=== PATIENT | male | born 1960 | race Caucasian/White ===

== ENCOUNTER 2018-12-21 13:14 | Emergency (ER) | payer OTHER ==
[2018-12-21] MEDS: IPRATROPIUM (NEB) 0.5 MG/2.5 ML AMP HHN (14:54)
[2018-12-21] MEDS: ALBUTEROL 0.083% (NEB) 2.5 MG/3 ML AMP HHN (14:54)
[2018-12-21] MEDS: DEXAMETHASONE 10 MG/ML 1 ML INJ IM (15:08)
== END 2018-12-21 15:45 | disposition home or self-care (01) ==
LOC: FTE 13:14
DX: R05 Cough (principal); J45.909 Unspecified asthma, uncomplicated; F17.210 Nicotine dependence, cigarettes, uncomplicated
CPT/HCPCS: 94664; 96372; 99284-25

== ENCOUNTER 2018-12-21 22:56 | Emergency (ER) | payer OTHER ==
[2018-12-22] MEDS: ALBUTEROL HFA 8 GM INHALER INH (04:28)
[2018-12-22] MEDS: AZITHROMYCIN 250 MG TAB PO ×5 (04:29→04:30)
== END 2018-12-22 05:30 | disposition home or self-care (01) ==
LOC: FTE 22:56
DX: Z76.0 Encounter for issue of repeat prescription (principal); J45.901 Unspecified asthma with (acute) exacerbation
CPT/HCPCS: 99283; 99283-25

== ENCOUNTER 2019-03-30 16:07 | Emergency (ER) | payer OTHER ==
[2019-03-30] MEDS ORDERED: ONDANSETRON 4 MG INJ IV (17:26)
[2019-03-30] MEDS ORDERED: SOD CHLORIDE 0.9% 1,000 ML IV (17:26)
[2019-03-30] MEDS ORDERED: morphine 4 MG/ML VIAL IV (17:26)
[2019-03-30] MEDS ORDERED: MECLIZINE 12.5 MG TAB PO (17:30)
[2019-03-30] MEDS ORDERED: DIPHTH/TET/ACEL PERTUSS (ADULT) 0.5 ML VIAL IM* (23:00)
[2019-03-30] MEDS ORDERED: ACETAMINOPHEN 500 MG TAB PO (23:00)
== END 2019-03-31 00:16 | disposition left against medical advice (07) ==
LOC: E/R 03-31 00:16
DX: S01.111A Laceration without foreign body of right eyelid and periocular area, initial encounter (principal); J45.909 Unspecified asthma, uncomplicated; Y04.2XXA Assault by strike against or bumped into by another person, initial encounter
CPT/HCPCS: 12011; 70450; 70486; 99284-25